=== PATIENT | male | born 1950 | race Caucasian/White ===

== ENCOUNTER → 2023-04-01 18:55 | Outpatient (CLI) | payer MEDICARE, OTHER, SELFPAY ==
--- NOTE | 2023-04-01 | DI.MRI.S_ITS ---
PROCEDURE: MR LUMBAR SPINE WO CON INDICATIONS: THORACIC AND LUMBAR SPINE PAIN TECHNIQUE: Noncontrast sagittal T1 spin echo and T2 fast echo, sagittal STIR, and T2 fast spin echo through the lumbar spine. In cases with scoliosis, additional coronal T2 fast spin echo may be performed. COMPARISON: [facility], CR, XR LUMBAR SPINE WITH FLEXION EXTENSION 5 VIEWS, 03/20/2023, 10:58. FINDINGS: Image quality: Excellent. Alignment and Curvature: Moderate levocurvature is centered at L1. Trace retrolisthesis of L1 on L2 and of L2 on L3 and of L3 on L4 and of L5 on S1. Bone Marrow: Marrow is of normal overall signal. No acute vertebral body compression fractures. Spinal Cord: Conus medullaris terminates at the L1-L2 level. Visualized cord demonstrates normal signal and size. Paraspinous Soft Tissues: No paravertebral masses. T12-L1: Disc bulge. Mild facet hypertrophy. No canal stenosis. Mild right foraminal stenosis. L1-L2: Mild disc height loss. Disc bulge. Bilateral facet hypertrophy. No central canal stenosis. Mild right foraminal narrowing. L2-L3: Severe chronic disc height loss. Retrolisthesis of L2 on L3. Facet hypertrophy. Mild canal stenosis. [id number] bilateral foraminal stenosis. L3-L4: Disc bulge. Facet hypertrophy. Epidural lipomatosis. Mild canal stenosis. Mild right foraminal narrowing. Moderate to severe left foraminal narrowing with a degree of left foraminal L3 nerve root impingement. L4-L5: Disc bulge. Facet hypertrophy. No significant central canal stenosis. Mild bilateral lateral recess stenosis. Evje-pu-okrliora bilateral foraminal narrowing. L5-S1: Severe chronic disc height loss. Retrolisthesis of L5 on S1. Posterior disc post osteophyte. Facet hypertrophy. No central canal stenosis. Moderate to severe bilateral foraminal stenosis with a degree of bilateral foraminal L5 nerve root impingement. IMPRESSION: 1. There is moderate levocurvature centered at L1. There is multilevel trace listhesis as described above. 2. Underlying multilevel facet arthropathy. 3. Canal stenosis is mild at L2-L3 and L3-L4. There is mild bilateral lateral recess stenosis at L4-L5. 4. Multilevel foraminal narrowing as described above. Findings include moderate to severe left foraminal narrowing at L3-L4 and moderate to severe bilateral foraminal narrowing at L5-S1 with foraminal nerve root impingement at these levels. Dictated by: Anil Huitron M.D. on 04/02/2023 at 10:22 Approved by: Anil Huitron M.D. on 04/02/2023 at 10:28
--- NOTE | 2023-04-01 | DI.MRI.S_ITS ---
PROCEDURE: MR THORACIC SPINE WO CON INDICATIONS: THORACIC AND LUMBAR SPINE PAIN TECHNIQUE: Noncontrast sagittal T1 spine echo and T2 fast spin echo, sagittal STIR, and T2 fast spin echo through the thoracic spine. COMPARISON: [facility], MR, MR LUMBAR SPINE WO CON, 04/01/2023, 19:21. [facility], CR, XR LUMBAR SPINE WITH FLEXION EXTENSION 5 VIEWS, 03/20/2023, 10:58. FINDINGS: Image quality: Excellent. Alignment and Curvature: S shaped thoracolumbar scoliotic curvature, with a mild thoracic component. Bone Marrow: Marrow is of normal overall signal. No acute vertebral body compression fractures. There is mild anterior vertebral body height loss of multiple contiguous midthoracic vertebral bodies result in mild increased thoracic kyphosis. Spinal Cord: Visualized spinal cord is normal in size and signal. Paraspinous Soft Tissues: No paravertebral masses. Miscellaneous: On axial images, there is no central canal stenosis. There is bilateral facet arthropathy at T7-T8 through T12-L1. There is severe narrowing on the right with foraminal nerve root impingement at T9-T10 and T10-T11. There is moderate right foraminal narrowing at T8-T9 and T11-T12. There is moderate left foraminal narrowing at T11-T12. IMPRESSION: 1. No acute compression fractures. 2. Findings suggest osteopenia or osteoporosis. There is increased thoracic kyphosis. 3. S shaped thoracolumbar scoliotic curvature. 4. Multilevel facet arthropathy, spanning from T7-T8 through T12-L1. There is resultant severe right foraminal narrowing with foraminal nerve root impingement at T9-T10 and T10-T11. Dictated by: Anil Huitron M.D. on 04/02/2023 at 9:46 Approved by: Anil Huitron M.D. on 04/02/2023 at 9:53
== END ==
PROVIDERS: PCP Family Medicine; Referring Provider Physician Assistant Surgical; Visit Provider Physician Assistant Surgical
DX: M47.26 Other spondylosis with radiculopathy, lumbar region (principal); M47.27 Other spondylosis with radiculopathy, lumbosacral region; M48.061 Spinal stenosis, lumbar region without neurogenic claudication; M48.07 Spinal stenosis, lumbosacral region; M41.9 Scoliosis, unspecified; M47.814 Spondylosis without myelopathy or radiculopathy, thoracic region; M48.04 Spinal stenosis, thoracic region; M54.50 Low back pain, unspecified; M54.6 Pain in thoracic spine
CPT/HCPCS: 72146; 72148

== ENCOUNTER → 2023-08-14 10:17 | Outpatient (CLI) | payer MEDICARE, OTHER, SELFPAY ==
[2023-08-14 12:05] LABS: Prostate Specific Antigen 0.858 ng/mL (0.10-4.00)
== END ==
PROVIDERS: PCP Family Medicine; Referring Provider Specialist; Visit Provider Specialist
DX: N40.1 Benign prostatic hyperplasia with lower urinary tract symptoms (principal); N13.8 Other obstructive and reflux uropathy; K40.90 Unilateral inguinal hernia, without obstruction or gangrene, not specified as recurrent; Z80.42 Family history of malignant neoplasm of prostate
CPT/HCPCS: 36415; 51798; 81002; 84153; 99215

== ENCOUNTER → 2024-07-13 10:36 | Outpatient (CLI) | payer MEDICARE, OTHER, SELFPAY ==
[2024-07-13 11:45] LABS: Alanine Aminotransferase 7 IU/L (<50); Albumin 4.1 g/dL (3.5-5.0); Albumin Globulin Ratio 1.8 (1.0-2.8); Alkaline Phosphatase 49 U/L (38-126); Aspartate Aminotransferase 22 IU/L (17-59); BUN Creatinine Ratio 40.3 (6-22); Bilirubin Total 1.2 mg/dL (0.2-1.3); Blood Urea Nitrogen 29 mg/dL (9-20); Carbon Dioxide 27 mmol/L (22-32); Chloride 104 mmol/L (98-107); Cholesterol 148 mg/dL (140-199); Estimated Glomerular Filt Rate > 60 mL/min (>60); Globulin 2.3 g/dL (1.7-4.1); Glucose 93 mg/dL (80-110); HDL Cholesterol 52 mg/dL (40-60); HEMOLYSIS < 15 (0-50); LDL Cholesterol Calculated 85 mg/dL (<100); Potassium 4.2 mmol/L (3.4-5.1); Sodium 136 mmol/L (137-145); Total Protein 6.4 g/dL (6.3-8.2); Triglycerides 54 mg/dL (35-150)
[2024-07-13 11:50] LABS: High Sensitivity CRP - Cardiac 0.4 mg/L (1.0-3.0)
== END ==
PROVIDERS: PCP Family Medicine; Referring Provider Urology; Visit Provider Urology
DX: N40.1 Benign prostatic hyperplasia with lower urinary tract symptoms (principal); E78.5 Hyperlipidemia, unspecified; Z80.42 Family history of malignant neoplasm of prostate; N13.8 Other obstructive and reflux uropathy; I10 Essential (primary) hypertension
CPT/HCPCS: 36415; 80053; 80061; 84153; 86140

== ENCOUNTER → 2025-05-18 14:48 | Outpatient (CLI) | payer MEDICARE, OTHER, SELFPAY ==
[2025-05-18 16:59] LABS: Add Manual Diff / Slide Review NO; Hematocrit 42.1 % (41-53); Hemoglobin 14.3 g/dL (13.5-17.5); Lymphocytes Absolute Auto 2600 /uL (1100-4500); Mean Corpuscular HGB Conc 34.0 % (30-36); Mean Corpuscular Hemoglobin 31.0 PG (26-34); Mean Corpuscular Volume 91.0 fL (80-100); Platelet Count 310 X10^3/uL (150-400)
[2025-05-18 17:29] LABS: Alanine Aminotransferase 9 IU/L (<50); Albumin 4.5 g/dL (3.5-5.0); Albumin Globulin Ratio 1.9 (1.0-2.8); Alkaline Phosphatase 50 U/L (38-126); Blood Urea Nitrogen 24 mg/dL (9-20); Calcium 9.4 mg/dL (8.4-10.2); Carbon Dioxide 26 mmol/L (22-32); Chloride 103 mmol/L (98-107); Estimated Glomerular Filt Rate > 60 mL/min (>60); Globulin 2.4 g/dL (1.7-4.1); Glucose 90 mg/dL (70-99); HEMOLYSIS < 15 (0-50); Potassium 4.1 mmol/L (3.4-5.1); Sodium 139 mmol/L (137-145); Total Protein 6.9 g/dL (6.3-8.2)
== END ==
PROVIDERS: PCP Family Medicine; Referring Provider Physician Assistant; Visit Provider Physician Assistant
DX: Z12.5 Encounter for screening for malignant neoplasm of prostate (principal)
CPT/HCPCS: 36415; 80053; 85025

== ENCOUNTER → 2025-07-13 09:20 | Outpatient (CLI) | payer MEDICARE, OTHER, SELFPAY ==
[2025-07-13 10:20] LABS: Add Manual Diff / Slide Review NO; Hematocrit 40.0 % (41-53); Hemoglobin 13.7 g/dL (13.5-17.5); Lymphocytes Absolute Auto 1900 /uL (1100-4500); Mean Corpuscular HGB Conc 34.2 % (30-36); Mean Corpuscular Hemoglobin 31.3 PG (26-34); Mean Corpuscular Volume 91.6 fL (80-100); Platelet Count 284 X10^3/uL (150-400)
[2025-07-13 10:38] LABS: HEMOLYSIS < 15 (0-50)
[2025-07-13 10:46] LABS: Alanine Aminotransferase 7 IU/L (<50); Albumin 4.1 g/dL (3.5-5.0); Albumin Globulin Ratio 1.8 (1.0-2.8); Alkaline Phosphatase 41 U/L (38-126); Blood Urea Nitrogen 31 mg/dL (9-20); Calcium 9.1 mg/dL (8.4-10.2); Carbon Dioxide 28 mmol/L (22-32); Chloride 102 mmol/L (98-107); Cholesterol 157 mg/dL (140-199); Estimated Glomerular Filt Rate > 60 mL/min (>60); Globulin 2.3 g/dL (1.7-4.1); Glucose 97 mg/dL (70-99); HDL Cholesterol 53 mg/dL (40-60); Potassium 4.0 mmol/L (3.4-5.1); Sodium 138 mmol/L (137-145); Total Protein 6.4 g/dL (6.3-8.2); Triglycerides 51 mg/dL (35-150)
[2025-07-14 05:10] LABS: CRP, High Sensitivity 0.42 mg/L (0.00-3.00)
== END ==
PROVIDERS: PCP Family Medicine; Referring Provider Family Medicine; Visit Provider Family Medicine
DX: Z12.5 Encounter for screening for malignant neoplasm of prostate (principal); G20.B1 Parkinson's disease with dyskinesia, without mention of fluctuations; I10 Essential (primary) hypertension; E78.5 Hyperlipidemia, unspecified
CPT/HCPCS: 36415; 80053; 80061; 85025; 86140; G0103

== ENCOUNTER → 2025-07-19 14:35 | Outpatient (CLI) | payer MEDICARE, OTHER, SELFPAY ==
[2025-07-19 16:55] LABS: Ferritin 53 ng/mL (18-464)
== END ==
PROVIDERS: PCP Family Medicine; Referring Provider Family Medicine; Visit Provider Family Medicine
DX: D50.9 Iron deficiency anemia, unspecified (principal)
CPT/HCPCS: 36415; 82728

== ENCOUNTER → 2025-07-20 13:31 | Outpatient (CLI) | payer MEDICARE, OTHER, SELFPAY | PROVIDERS: PCP Family Medicine; Referring Provider Family Medicine; Visit Provider Family Medicine | DX: D50.9 Iron deficiency anemia, unspecified (principal) | CPT/HCPCS: 82270 ==